=== PATIENT | female | born 1960 | race Caucasian/White ===

== ENCOUNTER → 2017-01-13 | Outpatient (CLI) | payer BC, MEDICARE ==
[2016-01-30 11:47] VITALS: BP 132/79
[~2017-01-13] MED LIST: CYCL10TA2 PO; DULO30CA2 PO; DULO60CA6 PO; OMEP40CA5 PO; RANI300T PO
--- NOTE | 2017-01-13 09:32 | RAD ---
Indication follow-up pulmonary nodules. Noncontrast imaging through the chest was performed and is compared to an examination 01/30/2016. Imaging through the upper abdomen is unremarkable. Morrell rods, neuro stimulating device and healed right rib fractures are noted. The thoracic aorta appears unremarkable. There are few mediastinal lymph nodes appearing stable relative to the previous exam. No definite pathologic mediastinal or hilar adenopathy is seen. There are a few small pulmonary nodules seen in the lungs appearing stable. A dominant soft tissue mass in either lung is not seen. No acute finding is apparent in the chest. IMPRESSION: No acute finding in the chest. Several small pulmonary nodules are seen in the lungs appearing similar to the previous exam PQRS Compliance Statement: One or more of the following individualized dose reduction techniques were utilized for this examination: 1. Automated exposure control 2. Adjustment of the mA and/or kV according to patient size 3. Use of iterative reconstruction technique
== END | disposition home or self-care (01) ==
LOC: CT 08:22
PROVIDERS: ATTEND Internal Medicine Pulmonary Disease
DX: R91.8 Other nonspecific abnormal finding of lung field (principal)
CPT/HCPCS: 71250

== ENCOUNTER → 2017-02-10 | Day surgery (SDC) | payer BC, MEDICARE ==
[~2017-02-10] MED LIST changes: +IV RINGERS,LACTATED 1000ML 1,000 ML IV SCH; +LIDOCAINE 1% PF 2 ML VIAL. ID PRN; +MIDAZOLAM HCL/PF 2 MG/2 ML VIAL. IV PRN; +PROPOFOL 60 ML IV ONE; +fentaNYL PF VIAL 100 MCG/2 ML VIAL IV PRN
[2017-02-10 09:16] VITALS: BP 107/53
--- NOTE | 2017-02-13 14:23 | PATHOLOGY ---
PATHOLOGY REPORT * * * * * * * * FINAL DIAGNOSIS: A. Colon biopsy, cecal polyp: - Tubular adenoma. B. Colon biopsy, sigmoid polyp: - Tubular adenoma. COMMENT: There is no high grade dysplasia or evidence of malignancy. (JPM:mml; 02/13/2017) REPORT ELECTRONICALLY SIGNED BY: Sukumar Katz M.D. DATE/TIME: 02/13/2017 14:23 * * * * * * * * GROSS PATHOLOGY: A. Received in formalin labeled "Erika Sanchez, cecal polyp," is a segment of kennedy soft tissue measuring 0.8 cm in maximum dimension. The specimen is submitted entirely in cassette A1. B. Received in formalin labeled "Erika Sanchez, sigmoid polyp," is a segment of kennedy soft tissue measuring 0.3 cm in maximum dimension. The specimen is submitted entirely in cassette B1. (TSD; 02/10/2017) INITIAL CPT CODE(S): A; 73555 B; 37252 Professional services [place] [facility] [place] [address] Technical services performed by [facility] at [address] [place] [address] [address] [address]. SPECIMEN(S) RECEIVED: A.Cecal polyp B.Sigmoid polyp CLINICAL HISTORY: GI bleed PATIENT: ERIKA SANCHEZ /AGE: 609/26/1960 (Age: 56) PATIENT #: [id number] ALT CASE #: SPECIMEN COLLECTION DATE: 02/10/2017 SPECIMEN RECEIVED DATE: 02/10/2017 [facility] - [address] [place] [address] - PHONE: [phone] * * * END OF REPORT * * *
== END | disposition home or self-care (01) ==
LOC: SURG 07:15
PROVIDERS: ATTEND Internal Medicine Gastroenterology
DX: D12.0 Benign neoplasm of cecum (principal); K29.50 Unspecified chronic gastritis without bleeding; D12.5 Benign neoplasm of sigmoid colon; J44.9 Chronic obstructive pulmonary disease, unspecified; K21.9 Gastro-esophageal reflux disease without esophagitis; F41.9 Anxiety disorder, unspecified; F17.200 Nicotine dependence, unspecified, uncomplicated; Z86.69 Personal history of other diseases of the nervous system and sense organs; Z87.01 Personal history of pneumonia (recurrent); Z90.49 Acquired absence of other specified parts of digestive tract; Z90.710 Acquired absence of both cervix and uterus; Z87.39 Personal history of other diseases of the musculoskeletal system and connective tissue; Z72.0 Tobacco use; Z88.2 Allergy status to sulfonamides
CPT/HCPCS: 43235; 45385; 88305; J2704

== ENCOUNTER → 2017-03-08 | Outpatient (CLI) | payer BC, MEDICARE ==
[2017-02-10 09:16] VITALS: BP 107/53
[~2017-03-08] MED LIST changes: +CONTRAST GIVEN MC PRN; +IOHEXOL 240 MG/ML 100 ML VIAL. IV ONE; +IOHEXOL 240 MG/ML 50ML VIAL. PO ONE; +IOHEXOL 300 MG/ML 100ML VIAL. IV ONE; +IOHEXOL 300 MG/ML 50 ML VIAL. PO ONE; -IV RINGERS,LACTATED 1000ML 1,000 ML IV SCH; -LIDOCAINE 1% PF 2 ML VIAL. ID PRN; -MIDAZOLAM HCL/PF 2 MG/2 ML VIAL. IV PRN; -PROPOFOL 60 ML IV ONE; -fentaNYL PF VIAL 100 MCG/2 ML VIAL IV PRN
--- NOTE | 2017-03-08 11:57 | RAD ---
CT of the abdomen and pelvis with contrast, 03/08/2017: History: Blood in stools Multidetector CT imaging was performed following oral and IV administration of contrast. Comparison is made to a study from 01/29/2017. A tiny 4 mm subpleural nodule in the posterolateral aspect of the left lung base is again noted. It is unchanged when compared to an older CT chest exam from 09/14/2015. This is probably an old granuloma or scar. Posterior rib deformities on the lower right may be postsurgical. The gallbladder is surgically absent. No hepatic abnormality is seen. The pancreas is unremarkable. The spleen is of normal size. No renal or adrenal abnormality is detected. There is moderate aortic calcific plaquing without evidence of aneurysm. No abdominal or pelvic adenopathy is seen. The uterus is surgically absent. The bowel loops are unremarkable. The appendix is visualized and shows no abnormality. A small hiatal hernia is noted. No free air or free fluid is evident in the abdomen or pelvis. There are spinal fixation rods and hooks in the lower thoracic spine extending down to L1-2. There are mild scattered degenerative changes in the lumbar spine. There is a subcutaneous electronic device in the left gluteal region attached to a spinal electrode. IMPRESSION: 1. No acute abdominal or pelvic abnormality is detected. 2. Small hiatal hernia. 3. Unchanged tiny left basilar pulmonary nodule. PQRS Compliance Statement: One or more of the following individualized dose reduction techniques were utilized for this examination: 1. Automated exposure control 2. Adjustment of the mA and/or kV according to patient size 3. Use of iterative reconstruction technique
== END | disposition home or self-care (01) ==
LOC: CT 12:58
PROVIDERS: ATTEND Internal Medicine Gastroenterology
DX: K44.9 Diaphragmatic hernia without obstruction or gangrene (principal); K92.1 Melena; R91.1 Solitary pulmonary nodule; Z36.3 Encounter for antenatal screening for malformations; Z90.49 Acquired absence of other specified parts of digestive tract
CPT/HCPCS: 74177; Q9967

== ENCOUNTER 2017-09-25 19:06 | Inpatient (IN) | payer BC, MEDICARE ==
[2017-09-25 19:38] LABS: ADD MAN DIFF? NO
[2017-09-25 19:40] LABS: BASO # 0.1 x10^3/uL (0.0-0.2); BASO % 1 % (0-3); EOS # 0.1 x10^3/uL (0.0-0.7); EOS % 1 % (0-3); HEMATOCRIT 42.9 % (36.0-47.0); HEMOGLOBIN 14.8 g/dL (12.0-15.5); LYMPH # 1.6 x10^3/uL (1.0-4.8); LYMPH % 15 % (24-48); MEAN CORPUSCULAR HEMOGLOBIN 33 pg (25-35); MEAN CORPUSCULAR HGB CONC 35 g/dL (31-37); MEAN CORPUSCULAR VOLUME 96 fL (79-100); MONO # 0.3 x10^3/uL (0.0-1.1); MONO % 3 % (0-9); NEUT # 8.6 x10^3uL (1.8-7.7); NEUT % 80 % (31-73); PLATELET COUNT 340 x10^3/uL (140-400); RED BLOOD COUNT 4.46 x10^6/uL (3.50-5.40); RED CELL DISTRIBUTION WIDTH 14.3 % (11.5-14.5); WHITE BLOOD COUNT 10.7 x10^3/uL (4.0-11.0)
[2017-09-25 19:54] LABS: ANION GAP 15 (6-14); BLOOD UREA NITROGEN 21 mg/dL (7-20); BUN/CREATININE RATIO 19 (6-20); CARBON DIOXIDE 18 mmol/L (21-32); CHLORIDE 107 mmol/L (98-107); CREATININE 1.1 mg/dL (0.6-1.0); GFR 51.6; GLUCOSE 138 mg/dL (70-99); POTASSIUM 3.4 mmol/L (3.5-5.1); SODIUM 140 mmol/L (136-145)
[2017-09-25 19:57] LABS: TROPONINI < 0.017 ng/mL (0.000-0.055)
[2017-09-25 19:59] LABS: ALBUMIN 3.5 g/dL (3.4-5.0); ALBUMIN/GLOBULIN RATIO 0.9 (1.0-1.7); ALK PHOS 144 U/L (46-116); ALT (SGPT) 45 U/L (14-59); AST (SGOT) 26 U/L (15-37); LIPASE 110 U/L (73-393); TOTAL BILIRUBIN 0.4 mg/dL (0.2-1.0); TOTAL PROTEIN 7.5 g/dL (6.4-8.2)
[2017-09-25] MEDS: IV NORMAL SALINE 1000ML BAG 1,000 ML IV ×2 (20:09→22:14)
[2017-09-25] MEDS: fentaNYL PF VIAL 100 MCG/2 ML VIAL IV ×2 (20:11→22:15)
[2017-09-25] MEDS: METOCLOPRAMIDE HCL 10 MG/2 ML VIAL. IV (20:11)
[2017-09-25] MEDS: diphenhydrAMINE 50 MG/ML VIAL IVP (20:12)
[2017-09-25] MEDS ORDERED: CONTRAST GIVEN. MC (20:15)
[2017-09-25] MEDS: IOHEXOL 300 MG/ML 100ML VIAL. IV (20:30)
[2017-09-25 20:49] LABS: BILIRUBIN,URINE NEGATIVE (NEG); CLARITY,URINE CLEAR; COLOR,URINE YELLOW; GLUCOSE,URINE NEGATIVE (NEG); NITRITE,URINE NEGATIVE (NEG); PH,URINE 5.5; PROTEIN,URINE 30 mg/dL (NEG-TRACE); UROBILINOGEN,URINE 0.2 mg/dL (0.2 mg/dL)
[2017-09-25 20:55] LABS: BACTERIA,URINE 0 /HPF (0-FEW); SQUAMOUS EPITHELIAL CELL,UR FEW /LPF; WBC,URINE RARE /HPF (0-4)
[2017-09-25] MEDS: ONDANSETRON PF 4 MG/2 ML VIAL. IV (22:15)
[2017-09-25] MEDS: POTASSIUM CHLORIDE 20 MEQ TABLET.ER. PO (22:18)
[2017-09-25 22:37] LABS: PARTIAL THROMBOPLASTIN TIME 26 SEC (24-38); PROTHROMBIN TIME PATIENT 12.4 SEC (11.7-14.0)
[2017-09-26] MEDS ORDERED: MORPHINE SULFATE 2 MG/ML DISP.SYRIN. IV
[2017-09-26] MEDS: PROCHLORPERAZINE 10 MG/2 ML VIAL. IV ×2 (00:26→18:03)
[2017-09-26] MEDS: IV NORMAL SALINE 1000ML BAG 1,000 ML IV ×3 (00:26→23:48)
[2017-09-26] MEDS: MORPHINE SULFATE 4 MG/ML DISP.SYRIN. IV ×4 (00:26→11:03)
[2017-09-26 04:11] LABS: ADD MAN DIFF? NO
[2017-09-26 04:33] LABS: BASO # 0.1 x10^3/uL (0.0-0.2); BASO % 1 % (0-3); EOS % 0 % (0-3); HEMATOCRIT 40.3 % (36.0-47.0); HEMOGLOBIN 13.6 g/dL (12.0-15.5); LYMPH # 1.8 x10^3/uL (1.0-4.8); LYMPH % 15 % (24-48); MEAN CORPUSCULAR HEMOGLOBIN 33 pg (25-35); MEAN CORPUSCULAR HGB CONC 34 g/dL (31-37); MEAN CORPUSCULAR VOLUME 98 fL (79-100); MONO # 0.5 x10^3/uL (0.0-1.1); MONO % 4 % (0-9); NEUT # 9.7 x10^3uL (1.8-7.7); NEUT % 80 % (31-73); PLATELET COUNT 276 x10^3/uL (140-400); RED CELL DISTRIBUTION WIDTH 14.1 % (11.5-14.5); WHITE BLOOD COUNT 12.2 x10^3/uL (4.0-11.0)
[2017-09-26 04:55] LABS: ALBUMIN/GLOBULIN RATIO 0.8 (1.0-1.7); ALK PHOS 129 U/L (46-116); ALT (SGPT) 38 U/L (14-59); ANION GAP 11 (6-14); AST (SGOT) 22 U/L (15-37); BLOOD UREA NITROGEN 16 mg/dL (7-20); BUN/CREATININE RATIO 20 (6-20); CALCIUM 8.3 mg/dL (8.5-10.1); CARBON DIOXIDE 22 mmol/L (21-32); CHLORIDE 112 mmol/L (98-107); CREATININE 0.8 mg/dL (0.6-1.0); GFR 74.2; GLUCOSE 117 mg/dL (70-99); POTASSIUM 4.1 mmol/L (3.5-5.1); SODIUM 145 mmol/L (136-145); TOTAL BILIRUBIN 0.4 mg/dL (0.2-1.0); TOTAL PROTEIN 6.7 g/dL (6.4-8.2)
[2017-09-26] MEDS: ONDANSETRON PF 4 MG/2 ML VIAL. IV ×2 (06:05→11:04)
[2017-09-26] MEDS ORDERED: PIP/TAZO PER PHARMACY MC (10:45)
[2017-09-26] MEDS: DULoxetine HCL 30 MG CAPSULE.DR PO (11:04)
[2017-09-26] MEDS: PANTOPRAZOLE 40 MG TABLET.DR. PO (11:04)
[2017-09-26] MEDS: PIPERACILLIN/TAZOBACTAM 3.375 GM in IV NORMAL SALINE 50ML 50 ML IV ×3 (12:00→23:49)
[2017-09-26] MEDS: ACETAMINOPHEN 325 MG TABLET. PO (18:02)
[2017-09-27] MEDS: PIPERACILLIN/TAZOBACTAM 3.375 GM in IV NORMAL SALINE 50ML 50 ML IV ×4 (05:34→23:28)
[2017-09-27 07:17] LABS: ADD MAN DIFF? NO
[2017-09-27 07:25] LABS: BASO # 0.1 x10^3/uL (0.0-0.2); BASO % 1 % (0-3); EOS # 0.2 x10^3/uL (0.0-0.7); EOS % 2 % (0-3); HEMATOCRIT 36.6 % (36.0-47.0); HEMOGLOBIN 12.6 g/dL (12.0-15.5); LYMPH # 1.8 x10^3/uL (1.0-4.8); LYMPH % 20 % (24-48); MEAN CORPUSCULAR HEMOGLOBIN 34 pg (25-35); MEAN CORPUSCULAR HGB CONC 34 g/dL (31-37); MEAN CORPUSCULAR VOLUME 98 fL (79-100); MONO # 0.6 x10^3/uL (0.0-1.1); MONO % 6 % (0-9); NEUT # 6.6 x10^3uL (1.8-7.7); NEUT % 72 % (31-73); PLATELET COUNT 255 x10^3/uL (140-400); RED BLOOD COUNT 3.74 x10^6/uL (3.50-5.40); RED CELL DISTRIBUTION WIDTH 14.2 % (11.5-14.5); WHITE BLOOD COUNT 9.2 x10^3/uL (4.0-11.0)
[2017-09-27 07:47] LABS: ANION GAP 10 (6-14); BLOOD UREA NITROGEN 15 mg/dL (7-20); CALCIUM 8.1 mg/dL (8.5-10.1); CARBON DIOXIDE 22 mmol/L (21-32); CHLORIDE 109 mmol/L (98-107); GFR 57.4; GLUCOSE 97 mg/dL (70-99); POTASSIUM 3.7 mmol/L (3.5-5.1); SODIUM 141 mmol/L (136-145)
[2017-09-27] MEDS: PANTOPRAZOLE 40 MG TABLET.DR. PO (09:11)
[2017-09-27] MEDS: IV NORMAL SALINE 1000ML BAG 1,000 ML IV ×2 (09:17→16:00)
[2017-09-27] MEDS: PROCHLORPERAZINE 10 MG/2 ML VIAL. IV (09:18)
[2017-09-27] MEDS: buPROPion XL 150 MG TAB.ER.24H. PO (10:53)
[2017-09-27] MEDS: ACETAMINOPHEN 325 MG TABLET. PO (16:00)
[2017-09-27] MEDS: oxyCODONE/APAP 5/325 1 TAB TABLET PO (18:08)
[2017-09-27] MEDS: LACTOBACILLUS RHAMNOSUS GG 1 CAPSULE. PO (21:06)
[2017-09-27] MEDS: oxyCODONE/APAP 10/325 1 TAB TABLET PO (23:27)
[2017-09-28] MEDS: IV NORMAL SALINE 1000ML BAG 1,000 ML IV (05:04)
[2017-09-28] MEDS: PIPERACILLIN/TAZOBACTAM 3.375 GM in IV NORMAL SALINE 50ML 50 ML IV ×3 (05:07→17:52)
[2017-09-28] MEDS: oxyCODONE/APAP 10/325 1 TAB TABLET PO ×3 (05:07→17:51)
[2017-09-28 05:50] LABS: ADD MAN DIFF? NO
[2017-09-28 06:01] LABS: BASO # 0.1 x10^3/uL (0.0-0.2); BASO % 1 % (0-3); EOS # 0.2 x10^3/uL (0.0-0.7); EOS % 2 % (0-3); HEMATOCRIT 34.4 % (36.0-47.0); HEMOGLOBIN 11.6 g/dL (12.0-15.5); LYMPH # 2.3 x10^3/uL (1.0-4.8); LYMPH % 31 % (24-48); MEAN CORPUSCULAR HEMOGLOBIN 33 pg (25-35); MEAN CORPUSCULAR HGB CONC 34 g/dL (31-37); MEAN CORPUSCULAR VOLUME 99 fL (79-100); MONO # 0.5 x10^3/uL (0.0-1.1); MONO % 7 % (0-9); NEUT # 4.5 x10^3uL (1.8-7.7); NEUT % 59 % (31-73); PLATELET COUNT 221 x10^3/uL (140-400); RED BLOOD COUNT 3.49 x10^6/uL (3.50-5.40); RED CELL DISTRIBUTION WIDTH 14.2 % (11.5-14.5); WHITE BLOOD COUNT 7.6 x10^3/uL (4.0-11.0)
[2017-09-28 06:14] LABS: ANION GAP 11 (6-14); BLOOD UREA NITROGEN 10 mg/dL (7-20); CALCIUM 8.1 mg/dL (8.5-10.1); CARBON DIOXIDE 22 mmol/L (21-32); CHLORIDE 108 mmol/L (98-107); CREATININE 0.9 mg/dL (0.6-1.0); GFR 64.8; GLUCOSE 91 mg/dL (70-99); POTASSIUM 3.4 mmol/L (3.5-5.1); SODIUM 141 mmol/L (136-145)
[2017-09-28] MEDS: LACTOBACILLUS RHAMNOSUS GG 1 CAPSULE. PO ×2 (08:09→21:16)
[2017-09-28] MEDS: buPROPion XL 150 MG TAB.ER.24H. PO (08:09)
[2017-09-28] MEDS: PANTOPRAZOLE 40 MG TABLET.DR. PO (08:09)
[2017-09-28] MEDS ORDERED: CONTRAST GIVEN. MC (12:45)
[2017-09-28] MEDS: IOHEXOL 300 MG/ML 100ML VIAL. IV (12:45)
[2017-09-28] MEDS: POTASSIUM CHLORIDE 20 MEQ TABLET.ER. PO (13:06)
[2017-09-28] MEDS: hydrALAZINE 20 MG/ML VIAL. IVP (17:51)
[2017-09-28] MEDS ORDERED: ALBUTEROL SULFATE 2.5 MG/3 ML NEBU. NEB (19:00)
[2017-09-29] MEDS: PIPERACILLIN/TAZOBACTAM 3.375 GM in IV NORMAL SALINE 50ML 50 ML IV ×3 (00:13→11:20)
[2017-09-29 06:25] LABS: C DIFF BY PCR Negative (Negative)
[2017-09-29] MEDS: LACTOBACILLUS RHAMNOSUS GG 1 CAPSULE. PO (08:43)
[2017-09-29] MEDS: buPROPion XL 150 MG TAB.ER.24H. PO (08:43)
[2017-09-29] MEDS: PANTOPRAZOLE 40 MG TABLET.DR. PO (08:43)
[2017-09-29] MEDS: POTASSIUM CHLORIDE 20 MEQ TABLET.ER. PO (08:44)
[2017-09-29] MEDS: oxyCODONE/APAP 10/325 1 TAB TABLET PO (08:45)
[2017-09-29 10:29] LABS: SICKLE CELL SCREEN NEGATIVE
== END 2017-09-29 12:50 | disposition home or self-care (01) | DRG 815 ==
LOC: 4 NORTH 23:22 → ER 19:06 → 4 NORTH 21:53
DX: D73.5 Infarction of spleen (principal); R65.10 Systemic inflammatory response syndrome (SIRS) of non-infectious origin without acute organ dysfunction; D68.59 Other primary thrombophilia; G62.9 Polyneuropathy, unspecified; E66.9 Obesity, unspecified; E87.6 Hypokalemia; F17.210 Nicotine dependence, cigarettes, uncomplicated; J44.9 Chronic obstructive pulmonary disease, unspecified; K21.9 Gastro-esophageal reflux disease without esophagitis; K57.90 Diverticulosis of intestine, part unspecified, without perforation or abscess without bleeding; G89.29 Other chronic pain; F32.9 Major depressive disorder, single episode, unspecified; F41.0 Panic disorder [episodic paroxysmal anxiety]; M19.90 Unspecified osteoarthritis, unspecified site; M54.5 Low back pain; K58.9 Irritable bowel syndrome, unspecified; T39.015A Adverse effect of aspirin, initial encounter; Z86.73 Personal history of transient ischemic attack (TIA), and cerebral infarction without residual deficits; Z68.38 Body mass index [BMI] 38.0-38.9, adult; Z82.49 Family history of ischemic heart disease and other diseases of the circulatory system; Z83.3 Family history of diabetes mellitus; Z90.49 Acquired absence of other specified parts of digestive tract; Z90.710 Acquired absence of both cervix and uterus; Z88.2 Allergy status to sulfonamides; Z86.010 Personal history of colon polyps; Y92.89 Other specified places as the place of occurrence of the external cause
CPT/HCPCS: 36415; 71045; 71260; 74177; 78306; 80048; 80053; 81001; 83690; 84484; 85025; 85610; 85660; 85730; 87040; 87045; 87324; 93005; 93306; 96361; 96374; 96375; 96376; 99285; 99285-25; A9503; J0360; J0780; J1200; J2270; J2405; J2543; J2765; J3010; J7030; Q9967

== ENCOUNTER → 2018-07-05 | Outpatient (CLI) | payer BC, MEDICARE ==
[2017-09-29 11:00] VITALS: BP 153/60
[~2018-07-05] MED LIST changes: +BUPR150T15 PO; -CONTRAST GIVEN MC PRN; -IOHEXOL 240 MG/ML 100 ML VIAL. IV ONE; -IOHEXOL 240 MG/ML 50ML VIAL. PO ONE; -IOHEXOL 300 MG/ML 100ML VIAL. IV ONE; -IOHEXOL 300 MG/ML 50 ML VIAL. PO ONE; +OXYC1TAB7 PO
--- NOTE | 2018-07-05 19:56 | RESP ---
DATE OF SERVICE: 07/05/2018 PULMONARY FUNCTION TEST ATTENDING PHYSICIAN: Dr. Mai. FINDINGS: The patient's FVC was 3.26, which is 89% predicted; FEV1 2.5, which is 89% predicted. The FEV1/FVC ratio was normal. No bronchodilators were given. Total lung capacity was 81% predicted. Diffusion capacity 94% predicted. IMPRESSION: 1. No evidence of any obstructive or restrictive lung disease. 2. Normal diffusion capacity. 3. No bronchodilators given. MINESH ALVAREZ MD DR: CARLOS ALBERTO/bennie JOB#: [id number] / [id number]
== END | disposition home or self-care (01) ==
LOC: PF 07:35
PROVIDERS: ATTEND Family Medicine
DX: J44.9 Chronic obstructive pulmonary disease, unspecified (principal); F17.200 Nicotine dependence, unspecified, uncomplicated
CPT/HCPCS: 94010; 94729

== ENCOUNTER 2018-12-22 13:15 | Emergency (ER) | payer BC, MEDICARE ==
[~2018-12-22] VITALS: Ht 172.7 cm; Wt 99.8 kg
[2018-12-22] MEDS ORDERED: FAMOTIDINE 20 MG/2 ML VIAL IVP ONE (13:30)
[2018-12-22] MEDS ORDERED: ONDANSETRON PF 4 MG/2 ML VIAL. IV ONE (13:30)
[2018-12-22] MEDS ORDERED: MORPHINE SULFATE 10 MG/ML VIAL. IV ONE (13:30)
[2018-12-22] MEDS ORDERED: IV NORMAL SALINE 1000ML BAG 1,000 ML IV ONE (13:30)
[2018-12-22 13:43] LABS: BASO % 1 % (0-3); EOS # 0.2 x10^3/uL (0.0-0.7); EOS % 2 % (0-3); HEMATOCRIT 41.3 % (36.0-47.0); LYMPH % 21 % (24-48); MEAN CORPUSCULAR HEMOGLOBIN 34 pg (25-35); MEAN CORPUSCULAR HGB CONC 34 g/dL (31-37); MEAN CORPUSCULAR VOLUME 101 fL (79-100); MONO # 0.6 x10^3/uL (0.0-1.1); MONO % 6 % (0-9); NEUT # 6.9 x10^3/uL (1.8-7.7); NEUT % 71 % (31-73); PLATELET COUNT 337 x10^3/uL (140-400); RED CELL DISTRIBUTION WIDTH 14.3 % (11.5-14.5); WHITE BLOOD COUNT 9.7 x10^3/uL (4.0-11.0)
--- NOTE | 2018-12-22 13:44 | PHYS DOC ---
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 Patient states the pain is worse when we palpate her left upper quadrant. Denies any hematemesis. Denies any melena. 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 She was seen at the doctor's office today and sent to the ED. Review of Systems Review of Systems Constitutional: Denies fever or chills [] Eyes: Denies change in visual acuity, redness, or eye pain [] HENT: Denies nasal congestion or sore throat [] Respiratory: Denies cough or shortness of breath [] Cardiovascular: No additional information not addressed in HPI [] GI: Reports left upper quadrant abdominal pain, diarrhea, nausea, denies vomiting : Denies dysuria or hematuria [] Musculoskeletal: Denies back pain or joint pain [] Integument: Denies rash or skin lesions [] Neurologic: Denies headache, focal weakness or sensory changes [] All other systems were reviewed and found to be within normal limits, except as documented in this note. Current Medications Current Medications Current Medications Medications (Trade) Dose Ordered Sig/Tresa Start Time Stop Time Status Last Admin Dose Admin Famotidine (Pepcid Vial) 20 mg 1X ONCE 12/22/18 13:30 12/22/18 13:44 DC 12/22/18 14:17 20 MG Info (CONTRAST GIVEN -- Rx MONITORING) 1 each PRN DAILY PRN 12/22/18 14:00 12/24/18 13:59 Iohexol (Omnipaque 300 Mg/ml) 75 ml 1X ONCE 12/22/18 14:00 12/22/18 14:01 DC 12/22/18 14:02 75 ML Morphine Sulfate (Morphine Sulfate) 5 mg 1X ONCE 12/22/18 13:30 12/22/18 13:44 DC 12/22/18 14:17 5 MG Ondansetron HCl (Zofran) 4 mg 1X ONCE 12/22/18 13:30 12/22/18 13:44 DC 12/22/18 14:17 4 MG Sodium Chloride 1,000 ml @ 1,000 mls/hr 1X ONCE 12/22/18 13:30 12/22/18 14:29 DC 12/22/18 14:17 1,000 MLS/HR Allergies Allergies Allergies Coded Allergies Type Severity Reaction Last Updated Verified Sulfa (Sulfonamide Antibiotics) Allergy Intermediate 02/10/17 Yes Physical Exam Physical Exam Constitutional: Well developed, well nourished, no acute distress, non-toxic appearance. [] HENT: Normocephalic, atraumatic, bilateral external ears normal, oropharynx moist, no oral exudates, nose normal. [] Eyes: PERRLA, EOMI, conjunctiva normal, no discharge. [] Neck: Normal range of motion, no tenderness, supple, no stridor. [] Cardiovascular:Heart rate regular rhythm, no murmur [] Lungs & Thorax: Bilateral breath sounds clear to auscultation [] Abdomen: Rounded abdomen. Bowel sounds normal, soft, diffuse tenderness throughout the abdominal pain worse on the left upper quadrant, no masses, no pulsatile masses. [] Skin: Warm, dry, no erythema, no rash. [] Back: No tenderness, no CVA tenderness. [] Extremities: No tenderness, no cyanosis, no clubbing, ROM intact, no edema. [] Neurologic: Alert and oriented X 3, normal motor function, normal sensory function, no focal deficits noted. [] Psychologic: Affect normal, judgement normal, mood normal. [] Current Patient Data Vital Signs Vital Signs Date Time Temp Pulse Resp B/P (MAP) Pulse Ox O2 Delivery O2 Flow Rate FiO2 12/22/18 14:57 19 95 Room Air 12/22/18 14:08 147/65 (92) 12/22/18 13:51 70 12/22/18 13:15 98.1 98.1 Lab Values Laboratory Tests Test 12/22/18 13:30 12/22/18 15:19 White Blood Count 9.7 x10^3/uL (4.0-11.0) Red Blood Count 4.10 x10^6/uL (3.50-5.40) Hemoglobin 14.0 g/dL (12.0-15.5) Hematocrit 41.3 % (36.0-47.0) Mean Corpuscular Volume 101 fL (79-100) H Mean Corpuscular Hemoglobin 34 pg (25-35) Mean Corpuscular Hemoglobin Concent 34 g/dL (31-37) Red Cell Distribution Width 14.3 % (11.5-14.5) Platelet Count 337 x10^3/uL (140-400) Neutrophils (%) (Auto) 71 % (31-73) Lymphocytes (%) (Auto) 21 % (24-48) L Monocytes (%) (Auto) 6 % (0-9) Eosinophils (%) (Auto) 2 % (0-3) Basophils (%) (Auto) 1 % (0-3) Neutrophils # (Auto) 6.9 x10^3/uL (1.8-7.7) Lymphocytes # (Auto) 2.0 x10^3/uL (1.0-4.8) Monocytes # (Auto) 0.6 x10^3/uL (0.0-1.1) Eosinophils # (Auto) 0.2 x10^3/uL (0.0-0.7) Basophils # (Auto) 0.0 x10^3/uL (0.0-0.2) Sodium Level 141 mmol/L (136-145) Potassium Level 4.4 mmol/L (3.5-5.1) Chloride Level 108 mmol/L (98-107) H Carbon Dioxide Level 22 mmol/L (21-32) Anion Gap 11 (6-14) Blood Urea Nitrogen 16 mg/dL (7-20) Creatinine 0.9 mg/dL (0.6-1.0) Estimated GFR (Cockcroft-Gault) 64.5 BUN/Creatinine Ratio 18 (6-20) Glucose Level 113 mg/dL (70-99) H Calcium Level 8.8 mg/dL (8.5-10.1) Total Bilirubin 0.4 mg/dL (0.2-1.0) Aspartate Amino Transferase (AST) 25 U/L (15-37) Alanine Aminotransferase (ALT) 26 U/L (14-59) Alkaline Phosphatase 126 U/L (46-116) H Total Protein 7.1 g/dL (6.4-8.2) Albumin 3.3 g/dL (3.4-5.0) L Albumin/Globulin Ratio 0.9 (1.0-1.7) L Lipase 167 U/L (73-393) Urine Collection Type Unknown Urine Color Yellow Urine Clarity Clear Urine pH 5.0 Urine Specific [place] >=1.030 Urine Protein Negative mg/dL (NEG-TRACE) Urine Glucose (UA) Negative mg/dL (NEG) Urine Ketones (Stick) Negative mg/dL (NEG) Urine Blood Trace (NEG) Urine Nitrite Negative (NEG) Urine Bilirubin Negative (NEG) Urine Urobilinogen Dipstick 0.2 mg/dL (0.2 mg/dL) Urine Leukocyte Esterase Trace (NEG) Urine RBC Occ /HPF (0-2) Urine WBC 5-10 /HPF (0-4) Urine Squamous Epithelial Cells Mod /LPF Urine Bacteria Few /HPF (0-FEW) Laboratory Tests 12/22/18 13:30 Laboratory Tests 12/22/18 13:30 EKG EKG [] Radiology/Procedures Radiology/Procedures []PROCEDURE: CT ABD PELV W/ IV CONTRST ONLY PQRS Compliance statement: One or more of the following individualized dose reduction techniques were utilized for this examination: 1. Automated exposure control. 2. Adjustment of the mA and/or kV according to patient size. 3. Use of iterative reconstruction technique. Indication:Abdominal pain, diarrhea and nausea. TECHNIQUE: CT abdomen and pelvis with IV contrast with multiplanar reformats. COMPARISON: 09/25/2017. FINDINGS: Heart is normal in size. No pericardial or pleural effusion. Stable subpleural right middle lobe nodule measuring 3 mm. 5 mm subpleural nodule in the medial aspect of the right lower lobe (series 2 image 8), stable. Stable 4 mm subpleural left lower lobe nodule. Liver, spleen, pancreas, adrenals and kidneys within normal limits. No enlarged retroperitoneal or pelvic adenopathy. No free pelvic fluid or ascites. Status post hysterectomy. No bowel obstruction. Normal appendix. Urinary bladder demonstrates no radiopaque stones. No pneumoperitoneum. No suspicious bony lesion. IMPRESSION: 1. Stable bilateral lung base nodules dating back to at least January 2017 and considered benign given interval stability. 2. No bowel obstruction. Normal appendix. Electronically signed by: Gamaliel Tyler DO (12/22/2018 2:17 PM) [facility] DICTATED and SIGNED BY: GAMALIEL TYLER DO DATE: 12/22/18 1417 Course & Med Decision Making Course & Med Decision Making Pertinent Labs and Imaging studies reviewed. (See chart for details) This is a 58-year-old female patient presented to the ED today with left upper quadrant abdominal pain, nausea and diarrhea that began this afternoon. CBC, CMP-no acute findings. UA shows a little bit of dehydration. CT of the abdomen and pelvis is negative for any acute findings. Patient was given 1 L of IV fluid, Zofran, morphine, feeling better. Discharged home. Instructed to follow-up with PCP in 1-2 weeks. Dragon Disclaimer Dragon Disclaimer This electronic medical record was generated, in whole or in part, using a voice recognition dictation system. Departure Departure Impression: Primary Impression: Diarrhea Additional Impressions: Left upper quadrant pain Nausea alone Disposition: HOME, SELF-CARE Condition: STABLE Referrals: TOPHER CUEVAS (PCP) follow up in one week Patient Instructions: Abdominal Pain (Nonspecific), Diarrhea, [id number] Additional Instructions: You were evaluated in the emergency room for abdominal pain nausea and diarrhea. Push fluids. Maintain good hand hygiene. Take the prescribed medications as ordered. Follow-up with your doctor in the course of next week. Come back to the ED at any point symptoms worsen. Scripts Dicyclomine Hcl (DICYCLOMINE HCL) 20 Mg Tablet 1 TAB PO TID, #30 TAB 0 Refills Prov: MARINA PEREZ APRN 12/22/18 Ondansetron Hcl (ZOFRAN) 4 Mg Tablet 1 TAB PO Q6HRS, #20 TAB Prov: MARINA PEREZ APRN 12/22/18 Problem Qualifiers Primary Impression: Diarrhea Diarrhea type: unspecified type Qualified Codes: R19.7 - Diarrhea, unspecified MARINA PEREZ APRN Dec 22, 2018 13:44
[2018-12-22 13:49] LABS: CALCIUM 8.8 mg/dL (8.5-10.1); CREATININE 0.9 mg/dL (0.6-1.0); GFR 64.5; POTASSIUM 4.4 mmol/L (3.5-5.1)
[2018-12-22 13:55] LABS: ALBUMIN 3.3 g/dL (3.4-5.0); ALBUMIN/GLOBULIN RATIO 0.9 (1.0-1.7); TOTAL BILIRUBIN 0.4 mg/dL (0.2-1.0); TOTAL PROTEIN 7.1 g/dL (6.4-8.2)
[2018-12-22] MEDS ORDERED: IOHEXOL 300 MG/ML 100ML VIAL. IV ONE (14:00)
[2018-12-22] MEDS ORDERED: CONTRAST GIVEN. MC PRN (14:00)
--- NOTE | 2018-12-22 14:20 | RAD ---
PQRS Compliance statement: One or more of the following individualized dose reduction techniques were utilized for this examination: 1. Automated exposure control. 2. Adjustment of the mA and/or kV according to patient size. 3. Use of iterative reconstruction technique. Indication:Abdominal pain, diarrhea and nausea. TECHNIQUE: CT abdomen and pelvis with IV contrast with multiplanar reformats. COMPARISON: 09/25/2017. FINDINGS: Heart is normal in size. No pericardial or pleural effusion. Stable subpleural right middle lobe nodule measuring 3 mm. 5 mm subpleural nodule in the medial aspect of the right lower lobe (series 2 image 8), stable. Stable 4 mm subpleural left lower lobe nodule. Liver, spleen, pancreas, adrenals and kidneys within normal limits. No enlarged retroperitoneal or pelvic adenopathy. No free pelvic fluid or ascites. Status post hysterectomy. No bowel obstruction. Normal appendix. Urinary bladder demonstrates no radiopaque stones. No pneumoperitoneum. No suspicious bony lesion. IMPRESSION: 1. Stable bilateral lung base nodules dating back to at least January 2017 and considered benign given interval stability. 2. No bowel obstruction. Normal appendix. Electronically signed by: Gamaliel Scherer DO (12/22/2018 2:17 PM) [facility]
[2018-12-22 15:35] LABS: BILIRUBIN,URINE NEGATIVE (NEG); CLARITY,URINE CLEAR; COLOR,URINE YELLOW; NITRITE,URINE NEGATIVE (NEG); PROTEIN,URINE NEGATIVE (NEG-TRACE); UROBILINOGEN,URINE 0.2 mg/dL (0.2 mg/dL)
[2018-12-22 15:38] LABS: RBC,URINE OCC /HPF (0-2)
[2018-12-22 15:39] LABS: BACTERIA,URINE FEW /HPF (0-FEW); SQUAMOUS EPITHELIAL CELL,UR MOD /LPF
[2018-12-22 16:00] VITALS: BP 124/60
[2018-12-22] MEDS ORDERED: DICY20TA3 PO (16:08)
[2018-12-22] MEDS ORDERED: ONDA4TAB7 PO (16:08)
== END 2018-12-22 16:25 | disposition home or self-care (01) ==
LOC: ER 13:15
DX: R10.12 Left upper quadrant pain (principal); R19.7 Diarrhea, unspecified; R11.0 Nausea; K21.9 Gastro-esophageal reflux disease without esophagitis; Z90.710 Acquired absence of both cervix and uterus; Z90.49 Acquired absence of other specified parts of digestive tract; Z88.2 Allergy status to sulfonamides
CPT/HCPCS: 36415; 74177; 80053; 81001; 83690; 85025; 96361; 96374; 96375; 99285; J2270; J2405; J3490; J7030; Q9967